=== PATIENT | male | born 1950 | race Caucasian/White ===

== ENCOUNTER 2019-08-15 05:33 | Day surgery (SDC) | payer BC ==
[~2019-08-15 05:33] MED LIST: Buffered Lidocaine 1% SYRIN* 1 ML/SYRINGE INTRADERM ONE
[2019-08-15] MEDS ORDERED: Lactated Ringers 1000 ML Bag* 1,000 ML IV SCH (06:00)
[2019-08-15] MEDS ORDERED: ceFAZolin 2 GM PREMIX in ORs 2 GM/50 ML BAG ONE (06:10)
[2019-08-15] MEDS ORDERED: Methylene Blue 0.5 %* 50 MG/10 ML AMP IV ONE (07:06)
[2019-08-15] MEDS ORDERED: Lidocaine 1% w EPI 1:100,000* MDV 20 ML VIAL ONE (07:06)
[2019-08-15] MEDS ORDERED: Bupivacaine 0.25% SDV* 30 ML ONE (07:06)
[2019-08-15] MEDS ORDERED: Midazolam* 1 MG/ML 5 ML VIAL (5 MG) ONE (07:16)
[2019-08-15] MEDS ORDERED: fentaNYL* 50 MCG/ML 2 ML VIAL (100 MCG VIAL) ONE (07:16)
[2019-08-15] MEDS ORDERED: Naloxone* 0.4 MG/ML 1 ML VIAL IV PRN (07:21)
[2019-08-15] MEDS ORDERED: Propofol* 10 MG/ML 20 ML BTL ONE (08:00)
[2019-08-15] MEDS ORDERED: Lidocaine 2% PF * 5 ML VIAL ONE (08:00)
[2019-08-15] MEDS ORDERED: Midazolam* 1 MG/ML 2 ML VIAL (2 MG) ONE (08:16)
[2019-08-15 10:23] VITALS: BP 126/75
== END 2019-08-15 10:23 | disposition home or self-care (01) ==
LOC: OR 05:33
PROVIDERS: ATTEND Plastic Surgery
DX: D17.9 Benign lipomatous neoplasm, unspecified (principal); E78.5 Hyperlipidemia, unspecified; Z87.891 Personal history of nicotine dependence
CPT/HCPCS: 88304; J0690; J2250; J2704; J3010; J3490